=== PATIENT | female | born 1970 | race Caucasian/White ===

== ENCOUNTER 2016-12-08 10:39 | Emergency (ER) | payer SELFPAY ==
[2016-12-08 10:42] VITALS: BP 100/53; PULSE 91; RESP 16; TEMP 97.7; O2SAT 97
[2016-12-08] MEDS ORDERED: IBUP800T23 PO (11:19)
[2016-12-08] MEDS ORDERED: BACT800T5 PO (11:19)
--- NOTE | 2016-12-08 11:19 | PD ---
HPI Chief Complaint: Skin Problem Time Seen by Provider: 11:18 Travel History International Travel<30 days: No Contact w/Intl Traveler<30days: No Traveled to known affect area: No History of Present Illness HPI 46-year-old female presents to emergency Department with complaint of abscess to her right buttocks for the last 4-5 days. Her significant other said he lanced it open himself and it drained. She's been taking an old prescription of Bactrim for the last 2 days with no improvement in symptoms. Is up-to-date on tetanus vaccination. Denies fever, vomiting. Pain is burning in sensation. Rates the pain a 7/10. Pain is aggravated with palpation and sitting. Has no other medical complaints. No known allergies. Has no established primary care provider. No other modifying factors or associated signs and symptoms. PFSH Social History Tobacco Use: No Allergies-Medications (Allergen,Severity, Reaction): Coded Allergies: No Known Allergies (Unverified , 12/08/16) Reported Meds & Prescriptions Reported Meds & Active Scripts Active Keflex (Cephalexin) 500 Mg Cap 500 Mg PO Q6H 10 Days Ibuprofen 800 Mg Tab 800 Mg PO Q6HR PRN Bactrim DS (Sulfamethoxazole-Trimethoprim) 800-160 Mg Tab 1 Tab PO BID 10 Days Review of Systems Except as stated in HPI: all other systems reviewed are Neg Physical Exam Narrative GENERAL: Well-nourished, well-developed female patient, in no acute distress; afebrile, nontoxic-appearing SKIN: There is an indurated area to the right lower buttocks which measures about 1.5 cm in diameter. It is nonfluctuant and there is an open area with minimal amount of purulent drainage. There is a zone of inflammation around it but no lymphangitis. HEAD: Atraumatic. Normocephalic. EYES: Pupils equal and round. No scleral icterus. No injection or drainage. ENT: Mucosa pink and moist. Airway patent. NECK: Trachea midline. CARDIOVASCULAR: Regular rate. RESPIRATORY: No accessory muscle use. GASTROINTESTINAL: Rounded. MUSCULOSKELETAL: No obvious deformities. No clubbing. No cyanosis. No edema. NEUROLOGICAL: Awake and alert. Oriented 3. No obvious cranial nerve deficits. Motor grossly within normal limits. Normal speech. PSYCHIATRIC: Appropriate mood and affect; insight and judgment normal. Data Data Last Documented VS Vital Signs Date Time Temp Pulse Resp B/P (MAP) Pulse Ox O2 Delivery O2 Flow Rate FiO2 12/08/16 10:42 97.7 91 16 100/53 (69) 97 Orders Orders Wound Culture And Gram Stain (12/08/16 11:19) Ed Discharge Order (12/08/16 11:20) MDM Medical Decision Making Medical Screen Exam Complete: Yes Emergency Medical Condition: Yes Medical Record Reviewed: Yes Differential Diagnosis Abscess, cellulitis, folliculitis Narrative Course 46-year-old female with an abscess of the right buttocks. Her significant other incised and drained it. She is afebrile and nontoxic-appearing. The abscess is open and draining a minimal amount of purulent drainage. It is nonfluctuant. He has been taking an old prescription of Bactrim for the last 2 days and says that there is been no improvement in symptoms. Patient up-to- date on tetanus vaccination. Wound culture pending. Bactrim, Keflex, ibuprofen prescribed for home. Instructed patient to follow up with primary care provider. Patient verbalizes understanding and agreement with treatment plan. Patient is medically cleared and stable for discharge. Discussed reasons to return to the emergency department. Patient agrees with treatment plan. The patients vital signs are stable and the patient is stable for outpatient follow-up and treatment. Patient discharged home, stable and in no acute distress. Diagnosis Primary Impression: Abscess of right buttock Referrals: [facility] [employer] Primary Care Physician Patient Instructions: Abscess (ED), Abscess Follow-up (ED), General Instructions Additional Instructions: Complete full course of antibiotics Warm compresses to the affected area Keep area clean and dry Ibuprofen or Tylenol as directed and as needed for pain and inflammation Follow-up with primary care provider Return to emergency department immediately with worsening of symptoms Med/Other Pt SpecificInfo: Prescription(s) given Scripts Cephalexin (Keflex) 500 Mg Cap 500 MG PO Q6H for Infection for 10 Days, #40 CAP 0 Refills Prov: Paulina Baird DATA ENTRY ANALYST 12/08/16 Ibuprofen (Ibuprofen) 800 Mg Tab 800 MG PO Q6HR Y for PAIN, #30 TAB 0 Refills Prov: Paulina Baird DATA ENTRY ANALYST 12/08/16 Sulfamethoxazole-Trimethoprim (Bactrim DS) 800-160 Mg Tab 1 TAB PO BID for Infection for 10 Days, #20 TAB 0 Refills Prov: Paulina Baird 12/08/16 Disposition: 01 DISCHARGE HOME Condition: Stable Paulina Baird Dec 08, 2016 11:19
[2016-12-08] MEDS ORDERED: CEPH-460 PO (11:24)
== END 2016-12-08 11:53 | disposition home or self-care (01) ==
LOC: NEPK 10:39
DX: L02.31 Cutaneous abscess of buttock (principal); A49.02 Methicillin resistant Staphylococcus aureus infection, unspecified site
CPT/HCPCS: 86403; 87070; 87186; 99284